=== PATIENT | female | born 1955 | race Caucasian/White ===

== ENCOUNTER 2024-12-12 17:18 | Emergency (ER) | payer MEDICARE, BC ==
[~2024-12-12] VITALS: Ht 175.3 cm; Wt 86.0 kg
[2024-12-12] MEDS ORDERED: GABAPENTIN600 MG PO (17:41)
[2024-12-12] MEDS ORDERED: DILTIAZEM 24HR300 M1 PO (17:41)
[2024-12-12] MEDS ORDERED: DULOXETINE HCL20 MG PO (17:42)
[2024-12-12] MEDS ORDERED: LOSARTAN POTASS25 MG PO (17:42)
[2024-12-12 18:01] LABS: BASOPHILS 0.6 % (0.1-1.2); EOSINOPHILS 2.1 % (0.7-5.8); HEMATOCRIT 39.8 % (34.1-44.9); HEMOGLOBIN 13.9 g/dL (11.2-15.7); LYMPHOCYTES 36.4 % (19.3-51.7); MCH 32.4 PG (25.6-32.2); MCHC 34.9 g/dL (32.2-35.5); MCV 92.8 fL (79.4-94.8); MONOCYTES 7.6 % (4.7-12.5); PLATELET COUNT 206 K/uL (182-369); RBC 4.29 M/uL (3.93-5.22)
[2024-12-12 18:20] LABS: ALBUMIN 3.9 g/dL (3.4-5.0); ALBUMIN/GLOBULIN RATIO 1.44 (1.1-2.4); ANION GAP 18.7 (7-21); BILIRUBIN, TOTAL 0.3 mg/dL (0.2-1.0); BUN/CREATININE RATIO 24.19 (6.0-28.6); CALCIUM 8.2 mg/dL (8.5-10.1); CREATININE, SERUM 0.62 mg/dL (0.55-1.02); MAGNESIUM 2.3 mg/dL (1.8-2.4); POTASSIUM 3.7 mmol/L (3.5-5.1); PROTEIN, TOTAL 6.6 g/dL (6.4-8.2)
[2024-12-12] MEDS ORDERED: propofoL 200 MG/20 ML VIAL IV ONE (18:30)
[2024-12-12 20:14] VITALS: BP 112/61
--- NOTE | 2024-12-13 12:10 | EKG ---
[facility] [address] [facility] [place] [address] Signed Normal sinus rhythm Nonspecific ST and T wave abnormality Abnormal ECG When compared with ECG of 12-DEC-2024 17:36, (Unconfirmed) Sinus rhythm has replaced Atrial fibrillation Criteria for Anteroseptal infarct are no longer present Nonspecific T wave abnormality now evident in Anterior leads Confirmed by Frankie Caldwell DO ([id number]) on 12/13/2024 12:10:12 PM Electronically Signed By: FRANKIE CALDWELL DO 12/13/24 1210 PATIENT NAME: BASHIR BANUELOS Electrocardiogram DATE OF : 51 PHYSICIAN: FRANKIE CALDWELL DO REPORT #: [id number] REPORT IS CONFIDENTIAL AND NOT TO BE RELEASED WITHOUT AUTHORIZATION
--- NOTE | 2024-12-13 12:10 | EKG ---
[facility] [address] [facility] [place], [place] [address] Signed Atrial fibrillation Anteroseptal infarct , age undetermined Abnormal ECG No previous ECGs available Confirmed by Frankie Caldwell DO ([id number]) on 12/13/2024 12:10:05 PM Electronically Signed By: FRANKIE CALDWELL DO 12/13/24 1210 PATIENT NAME: BASHIR BANUELOS Electrocardiogram DATE OF : 51 PHYSICIAN: FRANKIE CALDWELL DO REPORT #: [id number] REPORT IS CONFIDENTIAL AND NOT TO BE RELEASED WITHOUT AUTHORIZATION
== END 2024-12-12 20:14 | disposition home or self-care (01) ==
LOC: ED 17:18
PROVIDERS: Emergency Medicine
DX: I48.0 Paroxysmal atrial fibrillation (principal); I10 Essential (primary) hypertension; Z79.899 Other long term (current) drug therapy; Z88.8 Allergy status to other drugs, medicaments and biological substances
CPT/HCPCS: 36415; 80053; 83735; 84484; 85025; 92960; 93005; 93010; 94799; 99285-25; J2704